=== PATIENT | female | born 2000 | race Two or more races ===

== ENCOUNTER 2023-04-25 23:04 | Emergency (ER) | payer MEDICAID, OTHER ==
[~2023-04-25] VITALS: Ht 149.9 cm; Wt 73.9 kg
[2023-04-26] MEDS: HYDROcodone-ACET 5/325MG TAB PO ONE (01:33)
[2023-04-26] MEDS: ONDANSETRON ODT 4 MG TAB PO ONE (01:34)
[2023-04-26] MEDS ORDERED: IBUP-1456 PO (01:55)
[2023-04-26 02:37] VITALS: BP 134/71; PULSE 102; RESP 18; TEMP 98; O2SAT 94
== END 2023-04-26 02:54 | disposition home or self-care (01) ==
LOC: ER 23:04
DX: S83.91XA Sprain of unspecified site of right knee, initial encounter (principal); G80.9 Cerebral palsy, unspecified; Z88.6 Allergy status to analgesic agent; Z88.1 Allergy status to other antibiotic agents; W18.09XA Striking against other object with subsequent fall, initial encounter; Y93.89 Activity, other specified; Y92.89 Other specified places as the place of occurrence of the external cause; Y99.8 Other external cause status
CPT/HCPCS: 29505; 73562; 99283; Q0162